=== PATIENT | male | born 1975 | race Caucasian/White ===

== ENCOUNTER 2024-10-25 11:07 | Inpatient (IN) | payer SELFPAY ==
[~2024-10-25] VITALS: Ht 175.3 cm; Wt 101.6 kg
[2024-10-25] MEDS: MORPHINE SULFATE 4 MG/ML INJ (FOR IV/IM USE) IV STA (11:34)
[2024-10-25 11:37] LABS: BASOPHILS % 0.9 % (0.0-2.0); EOSINOPHILS % 6.1 % (0.0-5.0); HEMATOCRIT. 42.9 % (42.0-52.0); HEMOGLOBIN. 14.5 g/dL (14.0-18.0); MEAN CORPUSCULAR HEMOGLOBIN 30.9 pg (28.0-32.0); MEAN CORPUSCULAR HGB CONC 33.8 g/dL (31.0-37.0); MEAN CORPUSCULAR VOLUME 91.4 fL (80.0-94.0); MEAN PLATELET VOLUME 8.2 fl (7.4-10.4); MONOCYTES % 5.1 % (2.0-8.0); NEUTROPHILS % 38.9 % (40.0-76.0); PLATELET 266 x1000/uL (130-400); RED CELL DISTRIBUTION WIDTH 12.8 % (11.6-14.6); WHITE BLOOD COUNT 5.1 x1000/uL (4.5-11.0)
[2024-10-25 12:00] LABS: CHLORIDE 104 mEq/L (98-107); POTASSIUM 3.5 mEq/L (3.5-5.1); SODIUM 143 mEq/L (136-145)
[2024-10-25 12:01] LABS: CALCIUM 9.1 mg/dL (8.7-10.4); CARBON DIOXIDE 28 mEq/L (21-32)
[2024-10-25 12:06] LABS: CREATININE 0.9 mg/dL (0.6-1.3); GLUCOSE 89 mg/dL (70-105); UREA NITROGEN BLOOD 11 mg/dL (9-23)
[2024-10-25 12:07] LABS: TROPONIN I HIGH SENSITIVITY 11 ng/L (3.0-53)
[2024-10-25 14:01] VITALS: BP 158/101; PULSE 62; RESP 12; TEMP 36.2; O2SAT 98
[2024-10-25 14:06] VITALS: BP 158/101; PULSE 62; RESP 12; TEMP 36.2
[2024-10-25] MEDS ORDERED: ONDANSETRON HCL 4MG/2ML INJ IV PRN (15:00)
[2024-10-25] MEDS ORDERED: NALOXONE HCL 0.4MG/ML VIAL IV PRN (15:00)
[2024-10-25] MEDS: HYDROCODONE/ACETAMINOPHEN 5/325MG TABLET PO PRN (15:05)
[2024-10-25 15:10] VITALS: BP 151/91
[2024-10-25] MEDS: LOSARTAN 25 MG TABLET PO SCH (17:39)
[2024-10-25] MEDS: POTASSIUM CHLORIDE 20MEQ/PACKET PO NR (17:41)
[2024-10-25 20:00] VITALS: BP 153/79; PULSE 73; RESP 16; TEMP 36.5; O2SAT 97
[2024-10-25] MEDS: ENOXAPARIN 30MG/0.3ML SYR SUBCUT SCH (21:35)
[2024-10-25] MEDS: ZOLPIDEM TARTRATE 5MG TABLET PO PRN (21:35)
[2024-10-26 04:00] VITALS: BP 132/92; PULSE 58; RESP 18; TEMP 36.5; O2SAT 100
[2024-10-26 08:00] VITALS: BP 141/73; PULSE 66; RESP 18; TEMP 36.6; O2SAT 100
[2024-10-26 08:15] LABS: BASOPHILS % 0.2 % (0.0-2.0); EOSINOPHILS % 6.1 % (0.0-5.0); HEMATOCRIT. 44.9 % (42.0-52.0); HEMOGLOBIN. 14.8 g/dL (14.0-18.0); LYMPHOCYTES % 41.7 % (20.0-50.0); MEAN CORPUSCULAR HGB CONC 32.9 g/dL (31.0-37.0); MEAN CORPUSCULAR VOLUME 91.2 fL (80.0-94.0); MONOCYTES % 6.5 % (2.0-8.0); NEUTROPHILS % 45.5 % (40.0-76.0); PLATELET 256 x1000/uL (130-400); RED BLOOD CELL COUNT 4.92 mill/uL (4.7-6.1); RED CELL DISTRIBUTION WIDTH 12.8 % (11.6-14.6); WHITE BLOOD COUNT 4.9 x1000/uL (4.5-11.0)
[2024-10-26 08:33] LABS: CALCIUM 9.1 mg/dL (8.7-10.4); CHLORIDE 104 mEq/L (98-107); POTASSIUM 3.6 mEq/L (3.5-5.1); SODIUM 140 mEq/L (136-145)
[2024-10-26 08:34] LABS: CARBON DIOXIDE 28 mEq/L (21-32)
[2024-10-26 08:37] LABS: TROPONIN I HIGH SENSITIVITY 11 ng/L (3.0-53)
[2024-10-26 08:39] LABS: CREATININE 0.7 mg/dL (0.6-1.3); GLUCOSE 96 mg/dL (70-105); UREA NITROGEN BLOOD 9 mg/dL (9-23)
[2024-10-26] MEDS: ACETAMINOPHEN 325MG TABLET PO PRN (08:59)
[2024-10-26] MEDS: PANTOPRAZOLE SODIUM 40 MG/VIAL IV SCH (09:00)
[2024-10-26 12:00] VITALS: BP 151/100; PULSE 68; RESP 20; TEMP 36.5; O2SAT 99
[2024-10-26 16:11] VITALS: BP 151/100; PULSE 78; RESP 20; TEMP 36.5
[2024-10-26] MEDS: CLONIDINE 0.1MG TABLET PO PRN (16:14)
[2024-10-26 16:30] VITALS: BP 141/95; PULSE 80
[2024-10-26 16:44] LABS: TROPONIN I HIGH SENSITIVITY 9 ng/L (3.0-53)
[2024-10-26] MEDS: KETOROLAC 30MG/ML VIAL IV SCH (17:20)
[2024-10-26 20:00] VITALS: BP 126/82; PULSE 70; RESP 18; TEMP 36.4; O2SAT 97
[2024-10-27] VITALS: BP 142/89; PULSE 74; RESP 16; TEMP 36.8; O2SAT 97
[2024-10-27 04:00] VITALS: BP 118/86; PULSE 73; RESP 18; TEMP 36.4; O2SAT 99
[2024-10-27 10:13] LABS: BASOPHILS % 0.2 % (0.0-2.0); EOSINOPHILS % 3.6 % (0.0-5.0); HEMATOCRIT. 44.7 % (42.0-52.0); LYMPHOCYTES % 26.9 % (20.0-50.0); MEAN CORPUSCULAR HEMOGLOBIN 30.3 pg (28.0-32.0); MEAN CORPUSCULAR HGB CONC 33.6 g/dL (31.0-37.0); MEAN CORPUSCULAR VOLUME 90.1 fL (80.0-94.0); MEAN PLATELET VOLUME 8.3 fl (7.4-10.4); MONOCYTES % 6.7 % (2.0-8.0); NEUTROPHILS % 62.6 % (40.0-76.0); PLATELET 255 x1000/uL (130-400); RED BLOOD CELL COUNT 4.97 mill/uL (4.7-6.1); RED CELL DISTRIBUTION WIDTH 12.9 % (11.6-14.6); WHITE BLOOD COUNT 6.8 x1000/uL (4.5-11.0)
[2024-10-27 10:23] LABS: CALCIUM 9.3 mg/dL (8.7-10.4); CARBON DIOXIDE 30 mEq/L (21-32); CHLORIDE 99 mEq/L (98-107); POTASSIUM 3.8 mEq/L (3.5-5.1); SODIUM 139 mEq/L (136-145)
[2024-10-27 10:29] LABS: CREATININE 0.9 mg/dL (0.6-1.3); GLUCOSE 101 mg/dL (70-105); UREA NITROGEN BLOOD 14 mg/dL (9-23)
[2024-10-27] MEDS ORDERED: NAPR-681 MT (11:19)
[2024-10-27] MEDS ORDERED: HYDR-4001 MT (11:19)
[2024-10-27 12:00] VITALS: BP 138/94; PULSE 77; RESP 17; TEMP 36.7; O2SAT 98
[2024-10-27 13:06] VITALS: BP 138/94; PULSE 77; TEMP 98.1; O2SAT 98
== END 2024-10-27 13:14 | disposition home or self-care (01) | DRG 203 ==
LOC: ER 11:07 → EDBD 11:07 → 5WST 13:08 → EDBEDREQ 13:14
PROVIDERS: ADMIT Internal Medicine; ATTEND Internal Medicine
DX: R07.89 Other chest pain (principal); I10 Essential (primary) hypertension; K21.9 Gastro-esophageal reflux disease without esophagitis; M79.18 Myalgia, other site; R07.9 Chest pain, unspecified; M25.512 Pain in left shoulder; M54.9 Dorsalgia, unspecified; Z79.899 Other long term (current) drug therapy
CPT/HCPCS: 36415; 71045; 80048; 84484; 85025; 93005; 93970; 99285; J1650; J1885; J2270; J2470

== ENCOUNTER 2024-10-30 13:28 | Emergency (ER) | payer SELFPAY ==
[~2024-10-30] VITALS: Ht 162.6 cm; Wt 90.7 kg
[~2024-10-30 13:28] MED LIST: HYDR-4001 MT; NAPR-681 MT
[2024-10-30 13:29] VITALS: O2SAT 100
[2024-10-30 13:54] VITALS: BP 157/95; PULSE 90; RESP 14; TEMP 36.7; O2SAT 78
[2024-10-30] MEDS: IBUPROFEN 600MG TABLET PO ONE (15:27)
[2024-10-30] MEDS ORDERED: IBUP-2029 MT (16:26)
== END 2024-10-30 16:50 | disposition home or self-care (01) ==
LOC: ER 13:28
DX: M25.512 Pain in left shoulder (principal); Z79.899 Other long term (current) drug therapy
CPT/HCPCS: 73030; 99283; Z7610 ×2; A4606